=== PATIENT | female | born 1985 | race Caucasian/White ===

== ENCOUNTER 2018-03-11 09:00 | Outpatient (RCR) | payer MEDICAID, SELFPAY | END 2018-03-11 09:01 | disposition home or self-care (01) | LOC: ST 09:00 | PROVIDERS: Family Provider Internal Medicine Adolescent Medicine; Referring Provider Physical Medicine & Rehabilitation; Visit Provider Physical Medicine & Rehabilitation | DX: S06.6X9A Traumatic subarachnoid hemorrhage with loss of consciousness of unspecified duration, initial encounter (principal); S06.9X9A Unspecified intracranial injury with loss of consciousness of unspecified duration, initial encounter; R13.10 Dysphagia, unspecified | CPT/HCPCS: 92507; 96105 ==

== ENCOUNTER 2018-03-19 09:00 | Outpatient (RCR) | payer MEDICAID, SELFPAY | END 2018-03-19 09:01 | disposition home or self-care (01) | LOC: OT 09:00 | PROVIDERS: Family Provider Internal Medicine Adolescent Medicine; Visit Provider Physical Medicine & Rehabilitation | DX: S06.6X9A Traumatic subarachnoid hemorrhage with loss of consciousness of unspecified duration, initial encounter (principal); R13.10 Dysphagia, unspecified | CPT/HCPCS: 97110; 97164; 97166 ==

== ENCOUNTER 2018-04-01 09:30 | Outpatient (RCR) | payer MEDICAID, SELFPAY | END 2018-04-01 09:31 | disposition home or self-care (01) | LOC: PT 09:30 | PROVIDERS: Visit Provider Physical Medicine & Rehabilitation | DX: S06.6X9A Traumatic subarachnoid hemorrhage with loss of consciousness of unspecified duration, initial encounter (principal) | CPT/HCPCS: 97010; 97014; 97033; 97035; 97110; 97112; 97163; 97164; G0283 ==

== ENCOUNTER → 2018-09-14 17:51 | Outpatient (CLI) | payer MEDICAID, SELFPAY ==
[2018-09-14 18:25] LABS: Basophils % 0.4 % (0.1-2.0); Eosinophils # 0.2 K/mm3 (0.0-0.4); Eosinophils % 2.6 % (0.1-12.0); Hematocrit 41.8 % (37.0-47.0); Hemoglobin 13.9 g/dL (12.2-16.2); Lymphocytes # 2.5 K/mm3 (0.7-4.5); Lymphocytes % 31.3 % (10-50); Mean Corpuscular HGB Conc 33.2 g/dL (31.8-35.4); Mean Corpuscular Hemoglobin 30.9 pg (27.0-31.2); Mean Corpuscular Volume 93.1 fl (81-99); Mean Platelet Volume 8.5 fl (7.4-10.4); Monocytes # 0.4 K/mm3 (0.1-1.0); Monocytes % 5.4 % (1.7-9.3); Neutrophils # 4.8 K/mm3 (1.8-7.8); Neutrophils % 60.3 % (37.0-80.0); Platelet Count 210 K/mm3 (142-424); Red Blood Count 4.49 M/mm3 (4.20-5.40); White Blood Count 7.9 K/mm3 (4.8-10.8)
[2018-09-14 18:44] LABS: Alanine Aminotransferase 223 U/L (12-78); Albumin Level 3.9 gm/dL (3.4-5.0); Albumin/Globulin Ratio 1.1 (1.1-1.8); Alkaline Phosphatase 91 U/L (46-116); Anion Gap 13.2 mEq/L (5-15); Aspartate Amino Transferase 88 U/L (15-37); Bilirubin,Total 1.3 mg/dL (0.2-1.0); Blood Urea Nitrogen 13 mg/dL (7-18); Calcium 8.9 mg/dL (8.5-10.1); Carbon Dioxide 27 mmol/L (21.0-32.0); Chloride 105 mmol/L (98-107); Chol/HDL Ratio 2.8 (1-3.5); Cholesterol 113 mg/dL (140-200); Creatinine,Serum 0.97 mg/dL (0.55-1.02); Estimated Glomerular Filt Rate 66 ml/min (>60); Free T4 (Free Thyroxine) 1.31 ng/dl (0.76-1.46); GFR (African American) 80 ML/MIN (>60); Globulin 3.6 gm/dl (1.3-3.2); Glucose 81 mg/dL (74-106); HDL Cholesterol 41 mg/dL (29-89); LDL Cholesterol 57 mg/dL (0-130); Potassium 4.2 mmoL/L (3.5-5.1); Sodium 141 mmol/L (136-145); Thyroid Stimulating Hormone 1.72 uIU/ml (0.358-3.740); Total Protein,Serum 7.5 gm/dL (6.4-8.2); Triglycerides 75 mg/dL (30-200); VLDL Cholesterol 15 mg/dL (0-40)
[2018-09-16 08:57] LABS: Vitamin D 25 Hydroxy 33.3 ng/mL (30.0-100.0)
[2018-09-16 09:19] LABS: Hep A Ab, IgM Negative (Negative); Hepatitis B Core Antibody IgM Negative (Negative); Hepatitis B Surface Antigen Negative (Negative)
[2018-09-16 09:32] LABS: Hepatitis C Antibody >11.0 s/co ratio (0.0-0.9)
== END ==
PROVIDERS: Visit Provider Emergency Medicine
DX: R53.83 Other fatigue (principal); R74.8 Abnormal levels of other serum enzymes
CPT/HCPCS: 80053; 80061; 80074; 82652; 84439; 84443; 85025

== ENCOUNTER → 2018-09-22 17:17 | Outpatient (CLI) | payer MEDICAID, SELFPAY ==
[2018-09-26 23:07] LABS: HCV Genotype Charge YES; Hepatitis C Genotype 3 (.)
== END ==
PROVIDERS: Visit Provider Physician Assistant
DX: R76.8 Other specified abnormal immunological findings in serum (principal)
CPT/HCPCS: 36415; 87522; 87902

== ENCOUNTER → 2018-09-28 14:29 | Outpatient (CLI) | payer MEDICAID, SELFPAY ==
[2018-09-28 14:59] LABS: INR 0.99 (0.9-1.1); Prothrombin Time 10.2 seconds (9.4-11.8)
[2018-09-30 07:45] LABS: Hep A Ab, Total Positive (Negative)
[2018-10-01 07:46] LABS: HIV Screen 4th Generation wRfx Non Reactive (Non Reactive)
== END ==
PROVIDERS: Visit Provider Physician Assistant
DX: B19.20 Unspecified viral hepatitis C without hepatic coma (principal)
CPT/HCPCS: 36415; 85610; 86703; 86708; G0432

== ENCOUNTER → 2018-10-06 13:51 | Outpatient (CLI) | payer MEDICAID, SELFPAY ==
--- NOTE | 2018-10-06 | US_ITS ---
MM Dig mamm BI DX w/CAD, US breast LT complete US breast RT complete INDICATION: Bilateral breast lumps ORDERING PHYSICIAN: Parish Brown PATIENT AGE: 33 years COMPARISON: None TECHNIQUE: Standard images performed along with bilateral breast ultrasound FINDINGS: There is dense fibroglandular tissue which decreases the sensitivity of mammography. No malignant appearing mass or malignant appearing microcalcification is evident. There are scattered areas of asymmetric density present in both breasts felt to be due to areas of asymmetric fibroglandular tissue as opposed to true nodules. There was some asymmetric density in the superior aspect of the right breast demonstrated on one of 2 MLO views felt to be related to fibroglandular tissue. Asymmetric density also noted in the medial aspect of the left breast on the cc view but not produced on the exiting cc view which covers this region also felt to be due to hyperplasia. Similar areas also noted on the right but somewhat less apparent. No sonographic abnormality noted in this region. Right breast ultrasound: No solid or cystic masses are demonstrated. Small nodes present in the axilla. Left breast ultrasound: No solid or cystic lesions demonstrated. Small lymph nodes present in the axilla. IMPRESSION: No convincing evidence of malignancy. Scattered areas of asymmetry. Recommend 6 month follow-up BI-RADS Category: 3 Probably Benign Finding Short Term Follow-up RECOMMENDED FOLLOW-UP: 6M - 6 MONTH FOLLOW-UP Negative mammogram and negative ultrasound does not exclude the possibility of malignancy especially in this patient with dense breast tissue. Any palpable nodule should be managed on a clinical basis. (A letter has been sent to the patient regarding results of the study.)
== END ==
PROVIDERS: PCP Nurse Practitioner Family; Visit Provider Nurse Practitioner Family
DX: N63.10 Unspecified lump in the right breast, unspecified quadrant (principal); N63.20 Unspecified lump in the left breast, unspecified quadrant
CPT/HCPCS: 76641; 77066

== ENCOUNTER → 2018-12-16 16:22 | Outpatient (CLI) | payer MEDICAID, SELFPAY ==
--- NOTE | 2018-12-16 16:29 | XR_ITS ---
XR knee RT 3V HISTORY: ITS.REASON: knee pain ORDERING PHYSICIAN: Parish Brown APRN PATIENT AGE: 33 years COMPARISON: None FINDINGS: No fracture or dislocation. No lytic or blastic change. Normal mineralization. No significant arthritic changes evident. No other significant findings IMPRESSION: Negative Knee
== END ==
PROVIDERS: PCP Emergency Medicine; Visit Provider Nurse Practitioner Family
DX: M25.561 Pain in right knee (principal)
CPT/HCPCS: 73562

== ENCOUNTER → 2019-02-10 12:26 | Outpatient (CLI) | payer MEDICAID, SELFPAY ==
[2019-02-10 12:46] LABS: Basophils % 0.4 % (0.1-2.0); Eosinophils # 0.2 K/mm3 (0.0-0.4); Eosinophils % 2.9 % (0.1-12.0); Hematocrit 47.9 % (37.0-47.0); Hemoglobin 15.2 g/dL (12.2-16.2); Mean Corpuscular HGB Conc 31.8 g/dL (31.8-35.4); Mean Corpuscular Hemoglobin 29.8 pg (27.0-31.2); Mean Corpuscular Volume 93.9 fl (81-99); Monocytes # 0.4 K/mm3 (0.1-1.0); Monocytes % 4.7 % (1.7-9.3); Platelet Count 217 K/mm3 (142-424); Red Cell Distribution Width 13.3 % (11.5-17.5); White Blood Count 7.6 K/mm3 (4.8-10.8)
[2019-02-10 12:55] LABS: Urine Pregnancy, HCG Qual. Negative (Negative)
[2019-02-10 13:05] LABS: INR 1.02 (0.9-1.1); Prothrombin Time 10.6 seconds (9.4-11.8)
[2019-02-10 14:23] LABS: Alanine Aminotransferase 219 U/L (12-78); Albumin Level 3.7 gm/dL (3.4-5.0); Albumin/Globulin Ratio 1.1 (1.1-1.8); Alkaline Phosphatase 89 U/L (46-116); Anion Gap 14.6 mEq/L (5-15); Aspartate Amino Transferase 118 U/L (15-37); Bilirubin,Total 1.6 mg/dL (0.2-1.0); Blood Urea Nitrogen 14 mg/dL (7-18); Carbon Dioxide 25 mmol/L (21.0-32.0); Chloride 105 mmol/L (98-107); Creatinine,Serum 0.95 mg/dL (0.55-1.02); Estimated Glomerular Filt Rate 67 ml/min (>60); GFR (African American) 81 ML/MIN (>60); Globulin 3.4 gm/dl (1.3-3.2); Glucose 89 mg/dL (74-106); Potassium 4.6 mmoL/L (3.5-5.1); Sodium 140 mmol/L (136-145); Total Protein,Serum 7.1 gm/dL (6.4-8.2)
[2019-02-14 13:09] LABS: HCV Genotype Charge YES; Hepatitis C Genotype 3 (.)
== END ==
PROVIDERS: Visit Provider Nurse Practitioner Family
DX: B19.20 Unspecified viral hepatitis C without hepatic coma (principal)
CPT/HCPCS: 36415; 80053; 81025; 85025; 85610; 87522; 87902

== ENCOUNTER → 2019-03-15 13:10 | Outpatient (CLI) | payer MEDICAID, SELFPAY ==
[2019-03-15 14:35] LABS: HCG Qualitative, Serum Negative (Negative)
[2019-03-19 13:11] LABS: Hepatitis C Genotype 3 (.)
== END ==
PROVIDERS: Visit Provider Nurse Practitioner Family
DX: B19.20 Unspecified viral hepatitis C without hepatic coma (principal)
CPT/HCPCS: 36415; 84703; 87522

== ENCOUNTER → 2019-04-14 15:30 | Outpatient (CLI) | payer MEDICAID, SELFPAY ==
[2019-04-14 15:43] LABS: Basophils % 0.5 % (0.1-2.0); Eosinophils # 0.1 K/mm3 (0.0-0.4); Eosinophils % 1.6 % (0.1-12.0); Hematocrit 43.1 % (37.0-47.0); Hemoglobin 13.9 g/dL (12.2-16.2); Lymphocytes # 1.9 K/mm3 (0.7-4.5); Lymphocytes % 30.2 % (10-50); Mean Corpuscular HGB Conc 32.1 g/dL (31.8-35.4); Mean Corpuscular Hemoglobin 29.8 pg (27.0-31.2); Mean Corpuscular Volume 92.7 fl (81-99); Mean Platelet Volume 7.6 fl (7.4-10.4); Monocytes # 0.3 K/mm3 (0.1-1.0); Monocytes % 4.9 % (1.7-9.3); Neutrophils % 62.7 % (37.0-80.0); Platelet Count 161 K/mm3 (142-424); Red Blood Count 4.65 M/mm3 (4.20-5.40); White Blood Count 6.4 K/mm3 (4.8-10.8)
[2019-04-14 15:56] LABS: INR 1.03 (0.9-1.1); Prothrombin Time 10.7 seconds (9.4-11.8)
[2019-04-14 17:26] LABS: Alanine Aminotransferase 223 U/L (12-78); Albumin Level 3.8 gm/dL (3.4-5.0); Albumin/Globulin Ratio 1.2 (1.1-1.8); Alkaline Phosphatase 97 U/L (46-116); Anion Gap 10.4 mEq/L (5-15); Aspartate Amino Transferase 123 U/L (15-37); Bilirubin,Total 1.1 mg/dL (0.2-1.0); Blood Urea Nitrogen 10 mg/dL (7-18); Carbon Dioxide 28 mmol/L (21.0-32.0); Chloride 106 mmol/L (98-107); Creatinine,Serum 0.78 mg/dL (0.55-1.02); Estimated Glomerular Filt Rate 84 ml/min (>60); GFR (African American) 102 ML/MIN (>60); Globulin 3.1 gm/dl (1.3-3.2); Glucose 66 mg/dL (74-106); Potassium 3.4 mmoL/L (3.5-5.1); Sodium 141 mmol/L (136-145); Total Protein,Serum 6.9 gm/dL (6.4-8.2)
[2019-04-15 12:33] LABS: HCG,Quantitative 0 mIU/mL
[2019-04-19 02:11] LABS: HCV Genotype Charge YES; Hepatitis C Genotype 3 (.)
== END ==
PROVIDERS: Visit Provider Nurse Practitioner Family
DX: B19.20 Unspecified viral hepatitis C without hepatic coma (principal)
CPT/HCPCS: 36415; 80053; 84702; 85025; 85610; 87522; 87902

== ENCOUNTER → 2019-04-28 18:09 | Outpatient (CLI) | payer MEDICAID, SELFPAY ==
[2019-04-28 19:03] LABS: Basophils % 0.5 % (0.1-2.0); Eosinophils # 0.2 K/mm3 (0.0-0.4); Eosinophils % 2.6 % (0.1-12.0); Hematocrit 43.7 % (37.0-47.0); Hemoglobin 14.4 g/dL (12.2-16.2); Lymphocytes # 2.9 K/mm3 (0.7-4.5); Lymphocytes % 38.1 % (10-50); Mean Corpuscular Hemoglobin 30.2 pg (27.0-31.2); Mean Corpuscular Volume 91.6 fl (81-99); Mean Platelet Volume 8.5 fl (7.4-10.4); Monocytes # 0.4 K/mm3 (0.1-1.0); Monocytes % 4.9 % (1.7-9.3); Neutrophils # 4.1 K/mm3 (1.8-7.8); Neutrophils % 53.9 % (37.0-80.0); Platelet Count 227 K/mm3 (142-424); Red Blood Count 4.77 M/mm3 (4.20-5.40); Red Cell Distribution Width 12.9 % (11.5-17.5); White Blood Count 7.6 K/mm3 (4.8-10.8)
[2019-04-28 19:16] LABS: Alanine Aminotransferase 37 U/L (12-78); Albumin Level 3.8 gm/dL (3.4-5.0); Albumin/Globulin Ratio 1.1 (1.1-1.8); Alkaline Phosphatase 83 U/L (46-116); Anion Gap 15.9 mEq/L (5-15); Aspartate Amino Transferase 24 U/L (15-37); Bilirubin,Total 1.4 mg/dL (0.2-1.0); Blood Urea Nitrogen 10 mg/dL (7-18); Carbon Dioxide 25 mmol/L (21.0-32.0); Chloride 106 mmol/L (98-107); Creatinine,Serum 0.98 mg/dL (0.55-1.02); Estimated Glomerular Filt Rate 65 ml/min (>60); GFR (African American) 78 ML/MIN (>60); Globulin 3.4 gm/dl (1.3-3.2); Glucose 128 mg/dL (74-106); Potassium 3.9 mmoL/L (3.5-5.1); Sodium 143 mmol/L (136-145); Total Protein,Serum 7.2 gm/dL (6.4-8.2)
== END ==
PROVIDERS: Visit Provider Nurse Practitioner Family
DX: B19.20 Unspecified viral hepatitis C without hepatic coma (principal)
CPT/HCPCS: 80053; 85025; 87522

== ENCOUNTER 2019-05-03 14:30 | Outpatient (RCR) | payer MEDICAID, SELFPAY ==
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
== END 2019-05-03 14:35 | disposition home or self-care (01) ==
LOC: PT 14:30
PROVIDERS: Visit Provider Nurse Practitioner Family
DX: M54.9 Dorsalgia, unspecified (principal); M54.5 Low back pain; M25.561 Pain in right knee
CPT/HCPCS: 97110; 97163

== ENCOUNTER → 2019-05-13 17:21 | Outpatient (CLI) | payer MEDICAID, SELFPAY ==
[2019-05-13 17:57] LABS: INR 1.02 (0.9-1.1); Prothrombin Time 10.6 seconds (9.4-11.8)
[2019-05-13 18:01] LABS: Basophils # 0.1 K/mm3 (0-0.2); Basophils % 0.5 % (0.1-2.0); Eosinophils # 0.2 K/mm3 (0.0-0.4); Eosinophils % 2.4 % (0.1-12.0); Hematocrit 45.9 % (37.0-47.0); Hemoglobin 14.3 g/dL (12.2-16.2); Lymphocytes # 2.4 K/mm3 (0.7-4.5); Lymphocytes % 26.3 % (10-50); Mean Corpuscular HGB Conc 31.2 g/dL (31.8-35.4); Mean Corpuscular Hemoglobin 29.1 pg (27.0-31.2); Mean Corpuscular Volume 93.3 fl (81-99); Mean Platelet Volume 8.3 fl (7.4-10.4); Monocytes # 0.5 K/mm3 (0.1-1.0); Monocytes % 5.4 % (1.7-9.3); Neutrophils % 65.4 % (37.0-80.0); Platelet Count 211 K/mm3 (142-424); Red Blood Count 4.91 M/mm3 (4.20-5.40); Red Cell Distribution Width 13.7 % (11.5-17.5); White Blood Count 9.2 K/mm3 (4.8-10.8)
[2019-05-13 18:49] LABS: Urine Pregnancy, HCG Qual. Negative (Negative)
[2019-05-13 20:00] LABS: Alanine Aminotransferase 24 U/L (12-78); Albumin Level 3.6 gm/dL (3.4-5.0); Albumin/Globulin Ratio 1.1 (1.1-1.8); Alkaline Phosphatase 82 U/L (46-116); Aspartate Amino Transferase 17 U/L (15-37); Bilirubin,Total 1.4 mg/dL (0.2-1.0); Blood Urea Nitrogen 10 mg/dL (7-18); Carbon Dioxide 27 mmol/L (21.0-32.0); Creatinine,Serum 0.77 mg/dL (0.55-1.02); Estimated Glomerular Filt Rate 85 ml/min (>60); GFR (African American) 103 ML/MIN (>60); Globulin 3.2 gm/dl (1.3-3.2); Glucose 114 mg/dL (74-106); Potassium 3.7 mmoL/L (3.5-5.1); Sodium 139 mmol/L (136-145); Total Protein,Serum 6.8 gm/dL (6.4-8.2)
[2019-05-13 20:25] LABS: Anion Gap 11.7 mEq/L (5-15); Chloride 104 mmol/L (98-107)
== END ==
PROVIDERS: Visit Provider Nurse Practitioner Family
DX: B19.20 Unspecified viral hepatitis C without hepatic coma (principal)
CPT/HCPCS: 36415; 80053; 81025; 85025; 85610; 87522; 87902

== ENCOUNTER → 2019-06-09 11:41 | Outpatient (CLI) | payer MEDICAID, SELFPAY ==
[2019-06-09 11:56] LABS: Basophils % 0.7 % (0.1-2.0); Eosinophils # 0.1 K/mm3 (0.0-0.4); Eosinophils % 2.1 % (0.1-12.0); Hematocrit 42.4 % (37.0-47.0); Hemoglobin 13.5 g/dL (12.2-16.2); Lymphocytes # 2.4 K/mm3 (0.7-4.5); Lymphocytes % 38.8 % (10-50); Mean Corpuscular HGB Conc 31.9 g/dL (31.8-35.4); Mean Corpuscular Hemoglobin 30.1 pg (27.0-31.2); Mean Corpuscular Volume 94.4 fl (81-99); Mean Platelet Volume 8.6 fl (7.4-10.4); Monocytes # 0.4 K/mm3 (0.1-1.0); Monocytes % 6.4 % (1.7-9.3); Neutrophils # 3.2 K/mm3 (1.8-7.8); Platelet Count 194 K/mm3 (142-424); Red Blood Count 4.49 M/mm3 (4.20-5.40); Red Cell Distribution Width 13.2 % (11.5-17.5); White Blood Count 6.1 K/mm3 (4.8-10.8)
[2019-06-09 12:21] LABS: Urine Pregnancy, HCG Qual. Negative (Negative)
[2019-06-09 15:33] LABS: INR 1.03 (0.9-1.1); Prothrombin Time 10.7 seconds (9.4-11.8)
[2019-06-09 18:51] LABS: Alanine Aminotransferase 33 U/L (12-78); Albumin Level 3.5 gm/dL (3.4-5.0); Albumin/Globulin Ratio 1.1 (1.1-1.8); Alkaline Phosphatase 97 U/L (46-116); Anion Gap 12.7 mEq/L (5-15); Aspartate Amino Transferase 32 U/L (15-37); Bilirubin,Total 1.2 mg/dL (0.2-1.0); Blood Urea Nitrogen 11 mg/dL (7-18); Calcium 9.1 mg/dL (8.5-10.1); Carbon Dioxide 26 mmol/L (21.0-32.0); Chloride 106 mmol/L (98-107); Creatinine,Serum 0.85 mg/dL (0.55-1.02); Estimated Glomerular Filt Rate 76 ml/min (>60); GFR (African American) 92 ML/MIN (>60); Globulin 3.1 gm/dl (1.3-3.2); Glucose 88 mg/dL (74-106); Potassium 3.7 mmoL/L (3.5-5.1); Sodium 141 mmol/L (136-145); Total Protein,Serum 6.6 gm/dL (6.4-8.2)
== END ==
PROVIDERS: Visit Provider Nurse Practitioner Family
DX: B19.20 Unspecified viral hepatitis C without hepatic coma (principal)
CPT/HCPCS: 36415; 80053; 81025; 85025; 85610; 87522

== ENCOUNTER → 2019-07-09 17:12 | Outpatient (CLI) | payer MEDICAID, SELFPAY ==
[2019-07-09 17:58] LABS: Urine Pregnancy, HCG Qual. Negative (Negative)
[2019-07-09 18:08] LABS: Basophils % 0.6 % (0.1-2.0); Eosinophils # 0.2 K/mm3 (0.0-0.4); Eosinophils % 2.5 % (0.1-12.0); Hematocrit 41.1 % (37.0-47.0); Hemoglobin 13.9 g/dL (12.2-16.2); Lymphocytes # 2.6 K/mm3 (0.7-4.5); Lymphocytes % 36.4 % (10-50); Mean Corpuscular HGB Conc 33.7 g/dL (31.8-35.4); Mean Corpuscular Hemoglobin 30.8 pg (27.0-31.2); Mean Corpuscular Volume 91.4 fl (81-99); Mean Platelet Volume 9.6 fl (7.4-10.4); Monocytes # 0.4 K/mm3 (0.1-1.0); Monocytes % 6.1 % (1.7-9.3); Neutrophils # 3.8 K/mm3 (1.8-7.8); Neutrophils % 54.4 % (37.0-80.0); Platelet Count 213 K/mm3 (142-424); Red Cell Distribution Width 13.1 % (11.5-17.5)
[2019-07-09 18:09] LABS: Alanine Aminotransferase 23 U/L (12-78); Albumin Level 3.7 gm/dL (3.4-5.0); Albumin/Globulin Ratio 1.1 (1.1-1.8); Alkaline Phosphatase 79 U/L (46-116); Anion Gap 13.9 mEq/L (5-15); Aspartate Amino Transferase 23 U/L (15-37); Bilirubin,Total 1.7 mg/dL (0.2-1.0); Blood Urea Nitrogen 10 mg/dL (7-18); Calcium 8.9 mg/dL (8.5-10.1); Carbon Dioxide 23 mmol/L (21.0-32.0); Chloride 105 mmol/L (98-107); Creatinine,Serum 0.79 mg/dL (0.55-1.02); Estimated Glomerular Filt Rate 83 ml/min (>60); GFR (African American) 100 ML/MIN (>60); Globulin 3.5 gm/dl (1.3-3.2); Glucose 90 mg/dL (74-106); Potassium 3.9 mmoL/L (3.5-5.1); Sodium 138 mmol/L (136-145); Total Protein,Serum 7.2 gm/dL (6.4-8.2)
== END ==
PROVIDERS: Visit Provider Nurse Practitioner Family
DX: B19.20 Unspecified viral hepatitis C without hepatic coma (principal)
CPT/HCPCS: 80053; 81025; 85025; 87522; 87902

== ENCOUNTER → 2019-09-01 14:41 | Outpatient (CLI) | payer MEDICAID, SELFPAY ==
[2019-09-01 15:05] LABS: Urine Pregnancy, HCG Qual. Negative (Negative)
[2019-09-01 15:10] LABS: Basophils # 0.1 K/mm3 (0-0.2); Basophils % 0.6 % (0.1-2.0); Eosinophils # 0.2 K/mm3 (0.0-0.4); Eosinophils % 1.7 % (0.1-12.0); Hematocrit 41.9 % (37.0-47.0); Hemoglobin 13.3 g/dL (12.2-16.2); Lymphocytes # 2.5 K/mm3 (0.7-4.5); Lymphocytes % 28.4 % (10-50); Mean Corpuscular HGB Conc 31.7 g/dL (31.8-35.4); Mean Corpuscular Hemoglobin 28.7 pg (27.0-31.2); Mean Corpuscular Volume 90.6 fl (81-99); Mean Platelet Volume 8.3 fl (7.4-10.4); Monocytes # 0.4 K/mm3 (0.1-1.0); Monocytes % 4.7 % (1.7-9.3); Neutrophils # 5.7 K/mm3 (1.8-7.8); Neutrophils % 64.6 % (37.0-80.0); Platelet Count 233 K/mm3 (142-424); Red Blood Count 4.63 M/mm3 (4.20-5.40); Red Cell Distribution Width 13.2 % (11.5-17.5); White Blood Count 8.9 K/mm3 (4.8-10.8)
[2019-09-01 15:21] LABS: INR 1.01 (0.9-1.1); Prothrombin Time 10.5 seconds (9.4-11.8)
[2019-09-01 15:53] LABS: Alanine Aminotransferase 23 U/L (12-78); Albumin Level 3.5 gm/dL (3.4-5.0); Alkaline Phosphatase 93 U/L (46-116); Aspartate Amino Transferase 21 U/L (15-37); Bilirubin,Total 0.7 mg/dL (0.2-1.0); Blood Urea Nitrogen 16 mg/dL (7-18); Calcium 8.7 mg/dL (8.5-10.1); Carbon Dioxide 27 mmol/L (21.0-32.0); Chloride 103 mmol/L (98-107); Creatinine,Serum 0.86 mg/dL (0.55-1.02); Estimated Glomerular Filt Rate 75 ml/min (>60); GFR (African American) 91 ML/MIN (>60); Globulin 3.5 gm/dl (1.3-3.2); Glucose 96 mg/dL (74-106); Sodium 137 mmol/L (136-145)
== END ==
PROVIDERS: Visit Provider Nurse Practitioner Family
DX: B19.20 Unspecified viral hepatitis C without hepatic coma (principal)
CPT/HCPCS: 36415; 80053; 81025; 85025; 85610; 87522

== ENCOUNTER 2020-07-03 08:53 | Outpatient (RCR) | payer MEDICAID, SELFPAY ==
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
== END 2020-07-03 09:45 | disposition home or self-care (01) ==
LOC: PT 08:53
PROVIDERS: PCP Emergency Medicine; Visit Provider Nurse Practitioner Family
DX: M25.512 Pain in left shoulder (principal); M54.9 Dorsalgia, unspecified; M25.561 Pain in right knee; G89.29 Other chronic pain
CPT/HCPCS: 97163

== ENCOUNTER → 2020-08-09 09:35 | Outpatient (CLI) | payer MEDICAID, SELFPAY ==
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
== END ==
PROVIDERS: PCP Nurse Practitioner Family; Visit Provider Specialist
DX: R41.3 Other amnesia (principal); G43.719 Chronic migraine without aura, intractable, without status migrainosus; G93.49 Other encephalopathy; S06.9X9S Unspecified intracranial injury with loss of consciousness of unspecified duration, sequela; Z87.898 Personal history of other specified conditions
CPT/HCPCS: 70551

== ENCOUNTER → 2020-08-22 12:08 | Outpatient (CLI) | payer MEDICAID, SELFPAY ==
[2020-08-22 14:16] LABS: Vitamin B12 287 pg/mL (239-931)
[2020-08-22 14:22] LABS: Folate 6.78 ng/mL
== END ==
PROVIDERS: Visit Provider Specialist
DX: G43.719 Chronic migraine without aura, intractable, without status migrainosus (principal); G93.49 Other encephalopathy; R41.3 Other amnesia; S06.9X9S Unspecified intracranial injury with loss of consciousness of unspecified duration, sequela; Z87.898 Personal history of other specified conditions; Z79.899 Other long term (current) drug therapy
CPT/HCPCS: 36415; 82607; 82746; 84443

== ENCOUNTER → 2020-08-24 18:38 | Outpatient (CLI) | payer MEDICAID, SELFPAY ==
[2020-08-24 19:12] LABS: Basophils % 0.4 % (0.1-2.0); Eosinophils # 0.2 K/mm3 (0.0-0.4); Eosinophils % 2.2 % (0.1-12.0); Hematocrit 40.8 % (37.0-47.0); Hemoglobin 13.5 g/dL (12.2-16.2); Lymphocytes # 2.4 K/mm3 (0.7-4.5); Lymphocytes % 32.5 % (10-50); Mean Corpuscular HGB Conc 33.2 g/dL (31.8-35.4); Mean Corpuscular Hemoglobin 30.6 pg (27.0-31.2); Mean Corpuscular Volume 92.4 fl (81-99); Mean Platelet Volume 9.4 fl (7.4-10.4); Monocytes # 0.4 K/mm3 (0.1-1.0); Monocytes % 5.8 % (1.7-9.3); Neutrophils # 4.4 K/mm3 (1.8-7.8); Neutrophils % 59.1 % (37.0-80.0); Platelet Count 192 K/mm3 (142-424); Red Blood Count 4.42 M/mm3 (4.20-5.40); Red Cell Distribution Width 14.6 % (11.5-17.5); White Blood Count 7.4 K/mm3 (4.8-10.8)
[2020-08-24 19:21] LABS: Alanine Aminotransferase 28 U/L (12-78); Albumin Level 4.1 g/dl (3.5-5.0); Albumin/Globulin Ratio 1.4 (1.1-1.8); Alkaline Phosphatase 71 U/L (38-126); Anion Gap 13.6 mEq/L (5-15); Aspartate Amino Transferase 31 U/L (14-36); Blood Urea Nitrogen 9 mg/dl (7-17); Calcium 9.1 mg/dl (8.4-10.2); Carbon Dioxide 24 mmol/L (22.0-30.0); Chloride 106 mmol/L (98-107); Estimated Glomerular Filt Rate 95 ml/min (>60); GFR (African American) 115 ML/MIN (>60); Glucose 105 mg/dl (74-100); Potassium 4.6 mmoL/L (3.5-5.1); Sodium 139 mmol/L (136-145); Total Protein,Serum 7.1 g/dl (6.3-8.2)
[2020-08-24 19:37] LABS: T4 (Thyroxine) 9.4 ug/dl (5.53-11.0)
[2020-08-24 19:51] LABS: Thyroid Stimulating Hormone 2.15 uIU/mL (0.465-4.68)
== END ==
PROVIDERS: PCP Nurse Practitioner Family; Visit Provider Nurse Practitioner Family
DX: B19.20 Unspecified viral hepatitis C without hepatic coma (principal); R94.5 Abnormal results of liver function studies; R53.83 Other fatigue; R32 Unspecified urinary incontinence
CPT/HCPCS: 80053; 84436; 84443; 85025; 87086; 87522; 87902

== ENCOUNTER 2020-08-26 14:01 | Emergency (ER) | payer MEDICAID, SELFPAY ==
[2020-08-26 14:20] VITALS: BP 111/65; PULSE 64; RESP 18; TEMP 36.8; O2SAT 98; BMI 26.1
--- NOTE | 2020-08-26 14:38 | HMH.EDUTC ---
[facility] [place] Disposition Clinical Impression: Nausea & vomiting Qualifiers: Vomiting type: unspecified Vomiting Intractability: unspecified Qualified Code(s): R11.2 - Nausea with vomiting, unspecified Disposition: Home, Self-Care Condition on Discharge: Good Instructions: Nausea and Vomiting-Adult, DI for Nausea -- Adult, DI for COVID-19 (Suspected or Confirmed ), Preventing the Spread of Coronavirus Discharge Instructions, Coronavirus Disease 2019 Additional Instructions: ? Avoid fruit juices, as these do not replace minerals and can actually increase diarrhea. ? Children and adults can use sports drinks to replenish electrolytes. Younger children and infants should use products formulated for children, like oral rehydration solutions. ? Eat food in small amounts and let your stomach recover. ? Get lots of rest. You may feel tired or weak. ? No greasy or fried foods for the next 24-48 hours BRAT diet Bananas Rice Apples and [place] ? Make sure to drink plenty of liquids ? Return if needed ? Straight to ER if any life threatening symptoms ? Zofran as prescribed You were tested for today for COVID19 your test result should be back in the next 24-48 hours, you may call to the [facility] to see if your test results are back in the next 48 hours [phone] [facility] hours are 9am-9pm You was given a handout with instructions for Self Quarantine and Self isolation for while you wait on test results and what to do if they are positive If you are positive the Health Dept will be contacting you also ? Follow up with family doctor in the next 48-72 hours if no improvement or any worsening of symptoms Prescriptions: Ondansetron [Zofran 4mg ODT] 4 mg PO TIDP PRN #12 tab PRN Reason: Vomiting Transmission Status: Pending to [facility] Referrals: Parish Brown APRN [Primary Care Provider] - As needed Time of Disposition: 14:50 Medical Decision Making - Joon Inquiry Pt receiving controlled substance: No [place] was queried for this patient: No Vital Signs: 08/26/20 14:20 Temperature 98.2 F Temperature Source Oral Pulse Rate [Right Brachial] 64 Respiratory Rate 18 Blood Pressure [Right Arm] 111/65 Blood Pressure Mean [Right Arm] 80 Blood Pressure Source [Right Arm] Automatic Cuff Blood Pressure Position [Right Arm] Sitting 02 Sat by Pulse Oximetry 98 Oxygen Delivery Method Room Air Orders (Tests/Meds): ORDERS Category Date Time Status Covid-19 Nasal PCR ([facility]) Routine Lab 08/26/20 14:26 Ordered Medical Decision Narrative: Denies chance of [facility] [place] [facility] HPI - General Stated complaint: Cough, headache, nausea Time Seen by Provider: 08/26/20 14:38 Mode of Arrival: Ambulatory Source of Information: Patient Limitations: No Limitations Description of Symptoms (Recalled from Triage Doc. by RN): PATIENT C/O NAUSEA AND VOMITING SINCE THIS MORNING HEENT Symptoms (Recalled from RN notes): No Resp Symptoms (Recalled from RN notes): No Skin Symptoms (Recalled from RN notes): No MS Symptoms (Recalled from RN notes): No Functional Status (Recalled from RN notes): WNL - History of Present Illness Provider Complaint: Patient states that she hasnt felt well for a couple of days States that this morning she woke up and was having some nausea States that she was recently around her cousin that was tested for COVID but not got any results back yet States that she wanted to come in and get tested - Related Data Previous Rx's Medication Instructions Recorded diclofenac sodium 1 % topical gel 2 g TOPICAL QID #100 g 06/23/20 galcanezumab-gnlm 120 mg/mL 120 mg SQ QMONTH #1 ml 07/11/20 subcutaneous pen injector sumatriptan succinate 100 mg tablet See Rx Instructions PO .COMPLEX 07/11/20 #10 tab risperidone 0.5 mg tablet 0.5 mg PO BID #60 tab 08/21/20 Ondansetron [Zofran 4mg ODT] 4 mg PO TIDP PRN #12 tab 08/26/20 Allergies Allergy/AdvReac Type Severity Reaction Status Date / Time No Known Allergies Allergy Verified
[2020-08-26 14:54] VITALS: BP 111/65; PULSE 64; RESP 18; TEMP 36.8; O2SAT 98
--- NOTE | 2020-08-26 20:34 | PC.NURSE ---
ATTEMPTED TO CALL PT ABOUT COVID RESULTS. RECEIVED NO ANSWER. WILL TRY AGAIN LATER
--- NOTE | 2020-08-26 20:39 | PC.NURSE ---
PT NOTIFIED OF POSITIVE COVID RESULT
--- NOTE | 2020-08-26 20:43 | PC.NURSE ---
PATIENT NOTIFIED OF POSITIVE COVID TEST AT THIS TIME
== END 2020-08-26 14:55 | disposition home or self-care (01) ==
PROVIDERS: Emergency Provider Nurse Practitioner; PCP Nurse Practitioner Family
DX: U07.1 COVID-19 (principal); F41.8 Other specified anxiety disorders; I10 Essential (primary) hypertension; F17.210 Nicotine dependence, cigarettes, uncomplicated
CPT/HCPCS: 99202; G0463; U0003

== ENCOUNTER → 2020-09-21 15:57 | Outpatient (CLI) | payer MEDICAID, SELFPAY ==
[2020-09-23 18:55] LABS: Homocyst(e)ine 8.4 umol/L (0.0-14.5)
[2020-09-29 15:32] LABS: Methylmalonic Acid 108 nmol/L (0-378)
== END ==
PROVIDERS: Visit Provider Specialist
DX: E53.8 Deficiency of other specified B group vitamins (principal)
CPT/HCPCS: 36415; 82131; 83090

== ENCOUNTER 2020-09-26 01:02 | Emergency (ER) | payer MEDICAID, SELFPAY ==
[2020-09-26 01:05] VITALS: BP 129/78; PULSE 99; RESP 16; TEMP 36.6; O2SAT 100; BMI 26.6
--- NOTE | 2020-09-26 01:24 | PC.NURSE ---
Pt ambulatory to [facility] a this time independently
--- NOTE | 2020-09-26 01:27 | HMH.EDDIZZ ---
ED Disposition Clinical Impression: Dizziness, Abnormal drug screen Disposition: Home, Self-Care Condition on Discharge: Good Instructions: Vertigo Additional Instructions: call pcp for follow up Referrals: Parish Brown APRN [Primary Care Provider] - - Critical Care Critical Care Time: No Attestation: On 09/26/20, the high probability of a clinically significant, sudden or life threatening deterioration of the following system(s) required my full and direct attention, intervention and personal management. The time I documented below is in addition to time spent performing reported procedures but includes the following listed in this critical care notation. Medical Decision Making - Medical Records Medical records reviewed: Yes: I reviewed the patient's medical records. - Joon Inquiry Pt receiving controlled substance: No Vital Signs: 09/26/20 01:05 09/26/20 02:05 09/26/20 02:30 Temperature 97.8 F Temperature Source Oral Pulse Rate [Left Radial] 99 H 81 81 Respiratory Rate 16 16 Blood Pressure [Right Arm] 129/78 116/59 L 114/69 Blood Pressure Mean [Right Arm] 95 78 84 Blood Pressure Source [Right Arm] Automatic Cuff Automatic Cuff Automatic Cuff Blood Pressure Position [Right Arm] Supine Supine Supine 02 Sat by Pulse Oximetry 100 99 100 Oxygen Delivery Method Room Air Room Air Room Air - Lab Data Lab results reviewed: Yes: I reviewed the patient's lab results. Lab Results 09/26/20 01:26: WBC 7.8, RBC 4.92, Hgb 14.8, Hct 44.9, MCV 91.2, MCH 30.1, MCHC 33.0, RDW 13.4, Plt Count 181, MPV 8.6, Neut % (Auto) 52.2, Lymph % (Auto) 39.5, [place] % (Auto) 5.6, Eos % (Auto) 2.1, Baso % (Auto) 0.6, Neut # (Auto) 4.0, Lymph # (Auto) 3.1, [place] # (Auto) 0.4, Eos # (Auto) 0.2, Baso # (Auto) 0.1, ESR 3 09/26/20 01:26: Sodium 140, Potassium 3.5, Chloride 107, Carbon Dioxide 25, Anion Gap 11.5, BUN 13, Creatinine 0.80, Estimated Creat Clear 115, Estimated GFR 81, Est GFR ( Amer) 98, Glucose 112 H, Calcium 9.9, Total Bilirubin 1.4 H, Direct Bilirubin 0.1, Conjugated Bilirubin 0.0, Indirect Bilirubin 1.3 H, Unconjugated Bilirubin 1.3 H, AST 27, ALT 18, Alkaline Phosphatase 70, Troponin I < 0.01, C-Reactive Protein 1.2, Total Protein 8.4 H, Albumin 4.9 09/26/20 01:30: Urine Color Yellow, Urine Appearance Clear, Urine pH 6.0, Ur Specific [place] 1.010, Urine Protein Negative, Urine Glucose (UA) Negative, Urine Ketones Negative, Urine Blood Negative, Urine Nitrate Negative, Urine Bilirubin Negative, Urine Urobilinogen 0.2, Ur Leukocyte Esterase Negative, Urine RBC None, Urine WBC 3-5, Ur Squamous Epith Cells 10-20, Urine Bacteria Trace 09/26/20 01:30: Urine Opiates Screen Negative, Urine Methadone Screen Negative, Ur Barbituates Screen Negative, Ur Phencyclidine Scrn Negative, U Benzodiazepines Scrn Negative, Urine Cocaine Screen Negative, U Marijuana (THC) Screen Negative Result diagrams: 09/26/20 01:26 09/26/20 01:26 Orders (Tests/Meds): ED MEDICATIONS Generic Name Dose Route Start Last Admin Trade Name Freq PRN Reason Stop Dose Admin Sodium Chloride 1,000 mls @ 999 mls/hr 09/26/20 01:30 09/26/20 01:37 Sod Chlor 0.9% 1000ml Bag IV 09/26/20 02:30 999 mls/hr .Q1H1M RYAN Administration ORDERS Category Date Time Status Drug Screen,Urine Stat Lab 09/26/20 01:30 Results Troponin I Q3H Lab 09/26/20 04:30 Ordered Troponin I Q3H Lab 09/26/20 07:30 Ordered - ECG Data Tracing #1 Normal Sinus Rhythm: Yes Ischemic changes: non-specific ST-T wave changes Dizzy HPI - General Chief Complaint: Dizziness Stated Complaint: heart racing, anxiety Time Seen by Provider: 09/26/20 01:28 Mode of Arrival: Ambulatory Source of Information: Patient, Significant Other, Medical Record Limitations: No Limitations Description of Symptoms (Recalled from ER Triage Doc. by RN): Pt reports dizzy spells the past 2 days accomplanied by racing heart and a squeezing feeling in her chest. - History of Pr
[2020-09-26 01:34] LABS: Microscopic, Urine URINE MICROSCOPIC (MICROSCOPIC)
--- NOTE | 2020-09-26 01:35 | ECG_ITS ---
APPROVED REPORT Exam: Resting ECG HR:82 bpm ECG Measurements Heart Rate 82 AXES WI 140 P 70 QRSd 96 QRS 72 QT 416 T 42 QTc 486 Conclusion Normal sinus rhythm RSR' or QR pattern in V1 suggests right ventricular conduction delay Prolonged QT Abnormal ECG Electronically signed by : Kana Arteaga, 09/26/2020 07:09:51
[2020-09-26 01:42] LABS: C-Reactive Protein 1.2 mg/L (0-4)
[2020-09-26 01:43] LABS: Basophils # 0.1 K/mm3 (0-0.2); Basophils % 0.6 % (0.1-2.0); Eosinophils # 0.2 K/mm3 (0.0-0.4); Eosinophils % 2.1 % (0.1-12.0); Hematocrit 44.9 % (37.0-47.0); Hemoglobin 14.8 g/dL (12.2-16.2); Lymphocytes # 3.1 K/mm3 (0.7-4.5); Lymphocytes % 39.5 % (10-50); Mean Corpuscular Hemoglobin 30.1 pg (27.0-31.2); Mean Corpuscular Volume 91.2 fl (81-99); Mean Platelet Volume 8.6 fl (7.4-10.4); Monocytes # 0.4 K/mm3 (0.1-1.0); Monocytes % 5.6 % (1.7-9.3); Neutrophils % 52.2 % (37.0-80.0); Platelet Count 181 K/mm3 (142-424); Red Blood Count 4.92 M/mm3 (4.20-5.40); Red Cell Distribution Width 13.4 % (11.5-17.5); White Blood Count 7.8 K/mm3 (4.8-10.8)
[2020-09-26 01:44] LABS: Alanine Aminotransferase 18 U/L (12-78); Albumin Level 4.9 g/dl (3.5-5.0); Alkaline Phosphatase 70 U/L (38-126); Anion Gap 11.5 mEq/L (5-15); Aspartate Amino Transferase 27 U/L (14-36); Bilirubin,Direct 0.1 mg/dl (0.0-0.4); Bilirubin,Indirect 1.3 mg/dL (0.0-0.9); Bilirubin,Total 1.4 mg/dl (0.2-1.3); Bilirubin,Unconjugated 1.3 mg/dL (0.0-1.1); Blood Urea Nitrogen 13 mg/dl (7-17); Calcium 9.9 mg/dl (8.4-10.2); Carbon Dioxide 25 mmol/L (22.0-30.0); Chloride 107 mmol/L (98-107); Creatinine Clearance Estimated 115 mL/min (50-200); Estimated Glomerular Filt Rate 81 ml/min (>60); GFR (African American) 98 ML/MIN (>60); Glucose 112 mg/dl (74-100); Potassium 3.5 mmoL/L (3.5-5.1); Sodium 140 mmol/L (136-145); Total Protein,Serum 8.4 g/dl (6.3-8.2)
[2020-09-26 01:49] LABS: Appearance,Urine CLEAR (Clear); Bilirubin,Urine Negative (Negative); Blood, Urine Negative (Negative); Color,Urine YELLOW (Yellow); Glucose,Urine (UA) Negative (Negative); Ketones,Urine Negative (Negative); Leukocyte Esterase,Urine Negative (Negative); Nitrate,Urine Negative (Negative); Protein,Urine Negative (Negative); Urobilinogen,Urine 0.2 EU/dl (0.2)
[2020-09-26 02:02] LABS: Troponin I < 0.01 ng/ml (0.00-0.034)
[2020-09-26 02:05] VITALS: BP 116/59; PULSE 81; RESP 16; O2SAT 99
[2020-09-26 02:17] LABS: Barbiturates Screen,Urine Negative ng/ml (<200)
[2020-09-26 02:18] LABS: Benzodiazepines Screen,Urine Negative ng/ml (<200); Cannabinoid Screen,Urine Negative ng/ml (<50)
[2020-09-26 02:19] LABS: Cocaine Screen,Urine Negative ng/ml (<300)
[2020-09-26 02:20] LABS: Methadone Screen,Urine Negative ng/ml (<300); Opiate Screen,Urine Negative ng/ml (<300)
[2020-09-26 02:21] LABS: Phencyclidine Screen,Urine Negative ng/ml (<25)
[2020-09-26 02:30] VITALS: BP 114/69; PULSE 81; O2SAT 100
[2020-09-26 02:34] LABS: Bacteria,Urine Trace /lpf
[2020-09-26 02:57] LABS: Erythrocyte Sedimentation Rate 3 mm/hr (0-20)
[2020-09-26 03:26] VITALS: BP 126/80; PULSE 72; RESP 16; TEMP 36.7; O2SAT 100
[2020-09-30 06:44] LABS: Amphetamine Positive (.); Amphetamines Positive (.); Methamphetamine Positive (.)
[2020-09-30 08:35] LABS: Amphetamine (GC/MS) 1980 ng/mL (Cutoff=500); Methamphetamine (GC/MS) >3000 ng/mL (Cutoff=500)
== END 2020-09-26 03:28 | disposition home or self-care (01) ==
PROVIDERS: Emergency Provider Emergency Medicine; PCP Nurse Practitioner Family
DX: R42 Dizziness and giddiness (principal); R89.2 Abnormal level of other drugs, medicaments and biological substances in specimens from other organs, systems and tissues; R00.2 Palpitations; F41.8 Other specified anxiety disorders; I10 Essential (primary) hypertension; G43.709 Chronic migraine without aura, not intractable, without status migrainosus; F17.210 Nicotine dependence, cigarettes, uncomplicated; Z79.899 Other long term (current) drug therapy
CPT/HCPCS: 80048; 80076; 80305; 80324; 81001; 84484; 85025; 85651; 86140; 93005; 96365; 99283

== ENCOUNTER 2020-10-17 13:00 | Outpatient (RCR) | payer MEDICAID, SELFPAY ==
--- NOTE | 2020-08-09 13:00 | HMH.SLAPHASI ---
Speech & Language Evaluation Speech/Language Aphasia Evaluation Start: 08/09/20 12:31 Freq: once Status: Complete Protocol: Document 08/09/20 12:31 ULYSSES (Rec: 08/09/20 12:59 ULYSSES [id number]) Aphasia Assessment/Goals/Plan Assessment Date of Evaluation: 08/09/20 Evaluation Type Initial Certification Assessment/Problems Memory and cognitive changes. Does Patient Qualify for Service Yes Qualify/Failure Comment Significant memory and cognitive changes reported by patient. Evaluation results indicate a moderate memory/ cognitive disorder characterized by short term memory difficulties as well as difficulty with auditory comprension and recall. Plan Pt will be seen # times/week 2 for # weeks 8 Anticipate reaching STG in # weeks 4 Anticipate reaching LTG in # weeks 8 Pt/Guardian verbally ack understanding Yes of dx/prognosis/goals Pt/Guardian verbally ack understanding Yes of/consent to tx prog G -code Required No STG-Auditory Comprehension Sentence Level 80 Paragraph Level 80 STG-Reading Comprehension Reading Paragraphs & Ans Questions 80 STG-Attending/Orientation/Memory Delayed Recall 80 Attention/Concentration 80 Memory Recall 80 Sustainability Communicator Goals Increase oral motor tone to improve No intelligibility. Increase intelligibility w/use of No traditional articulation treatment. Increase verbal expression skills to No communicate w/family & friends. Education Instructions provided Patient and her partner were provided information about therapy and home exercise programs to be implemented. Pt/Caregiver Able to Recall Information Able to recall/restate Reinforcement needed Yes Speech & Language HPI History Present Illness Description of Patient Problem Kristin Salguero was referred for a cognitive evaluation due to recent significant cognitive changes and decline in short term memory skills. Pt/Caregiver Concerns Memory and independence Rehab Services Assessed Speech therapy Is this evaluation r/t stroke? No Hearing Previous Hearing Test Yes Prior Test Location Non [facility] Facility/Provider Hearing Ability Hard of Hearing Comment Patient reports hearing loss
== END 2020-10-17 13:05 | disposition home or self-care (01) ==
LOC: ST 13:00
PROVIDERS: PCP Nurse Practitioner Family; Visit Provider Specialist
DX: S06.9X9A Unspecified intracranial injury with loss of consciousness of unspecified duration, initial encounter (principal); G43.719 Chronic migraine without aura, intractable, without status migrainosus; G93.49 Other encephalopathy; R41.3 Other amnesia; R41.89 Other symptoms and signs involving cognitive functions and awareness
CPT/HCPCS: 92507; 92523; 97129; 97130

== ENCOUNTER 2020-10-17 14:00 | Outpatient (RCR) | payer MEDICAID, SELFPAY ==
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
--- NOTE | 2020-10-13 10:22 | HMH.RHREAS ---
Rehab Reassessment Rehab OP Re-assessment Start: 10/13/20 10:17 Freq: Status: Active Protocol: Document 10/13/20 10:17 BERNIE (Rec: 10/13/20 10:22 BERNIE [id number]) Electronically Signed By Satinder Shipley, PT 10/13/20 10:17 Rehab Re-assessment Subjective Subjective PT REPORTS 4/10 LBP, 0-3/10 R KNEE PAIN, AND 2-3/10 L SH PAIN ON VAS THIS AM Objective Objective Notes L-SPINE AROM FLX 0-45, EXT 0- 20, B SB 0-30 AROM L SH: FLX 0-130, ABD 0- 130, R KNEE FLX 0-110 MMT: L SH FLX 4/5, ABD 4/5, R KNEE FLX 4+/5, R KNEE EXT 4+/5 , R HIP FLX 4/5 TTP: L2-4 PARA MM 3/4, R AND L THORACIC PARA 3/4, L SH ANT JT LINE 1-2/4 Assessment Progress Assessment Progressing as Expected Assessment Notes IMPROVED ROM, STRENHTH, AND SLIGHT IMPROVEMENT IN TTP Patient goals met STG'S 12/23 LTG'S 08/26 Goals Not Met STG'S 10/23, LTG'S 03/26 Plan Plan PT TO CONT. W/SKILLED P.T. TO MAKE FURTHER IMPROVEMENTS IN ROM, STRENGTH, AND TTP TO ALLOW FOR OPTIMAL FUNCTION Frequency of Therapy 1-2X/WK Duration of therapy 3-4WKS Time and Billing Re-Eval Time 15 Re-Eval Billing Units 1 PHYSICIAN CERTIFICATION: I certify the specified therapy services for Kristin Martinezmontana Fisher are required, authorized, and reviewed every 30 days.
== END 2020-10-17 14:05 | disposition home or self-care (01) ==
LOC: PT 14:00
PROVIDERS: Visit Provider Nurse Practitioner Family
DX: M54.9 Dorsalgia, unspecified (principal); G89.29 Other chronic pain
CPT/HCPCS: 97010; 97014; 97110; 97163; 97164; G0283

== ENCOUNTER 2020-12-07 21:14 | Emergency (ER) | payer MEDICARE, MEDICAID, SELFPAY ==
[2020-12-07 21:14] VITALS: BP 113/60; PULSE 106; RESP 16; TEMP 36.4; O2SAT 99; BMI 22.6
[2020-12-07 22:31] VITALS: BP 110/62; PULSE 101; RESP 16; O2SAT 100
[2020-12-07 22:49] LABS: Basophils % 0.4 % (0.1-2.0); Eosinophils # 0.3 K/mm3 (0.0-0.4); Eosinophils % 2.5 % (0.1-12.0); Hematocrit 39.4 % (37.0-47.0); Hemoglobin 12.7 g/dL (12.2-16.2); Lymphocytes # 2.9 K/mm3 (0.7-4.5); Lymphocytes % 29.1 % (10-50); Mean Corpuscular HGB Conc 32.2 g/dL (31.8-35.4); Mean Corpuscular Hemoglobin 29.2 pg (27.0-31.2); Mean Corpuscular Volume 90.6 fl (81-99); Mean Platelet Volume 8.2 fl (7.4-10.4); Monocytes # 0.4 K/mm3 (0.1-1.0); Monocytes % 4.4 % (1.7-9.3); Neutrophils # 6.2 K/mm3 (1.8-7.8); Neutrophils % 63.6 % (37.0-80.0); Platelet Count 211 K/mm3 (142-424); Red Blood Count 4.34 M/mm3 (4.20-5.40); Red Cell Distribution Width 13.2 % (11.5-17.5); White Blood Count 9.8 K/mm3 (4.8-10.8)
[2020-12-07 22:51] LABS: Alanine Aminotransferase 37 U/L (12-78); Albumin Level 4.1 g/dl (3.5-5.0); Albumin/Globulin Ratio 1.3 (1.1-1.8); Alkaline Phosphatase 104 U/L (38-126); Anion Gap 11.6 mEq/L (5-15); Aspartate Amino Transferase 29 U/L (14-36); Bilirubin,Total 0.7 mg/dl (0.2-1.3); Blood Urea Nitrogen 11 mg/dl (7-17); Calcium 9.1 mg/dl (8.4-10.2); Carbon Dioxide 23 mmol/L (22.0-30.0); Chloride 106 mmol/L (98-107); Creatinine Clearance Estimated 111 mL/min (50-200); Estimated Glomerular Filt Rate 95 ml/min (>60); GFR (African American) 115 ML/MIN (>60); Globulin 3.1 g/dL (1.3-3.2); Glucose 139 mg/dl (74-100); Potassium 3.6 mmoL/L (3.5-5.1); Sodium 137 mmol/L (136-145); Total Protein,Serum 7.2 g/dl (6.3-8.2)
[2020-12-07 22:54] LABS: Lactic Acid 1.5 mmol/L (0.7-2.1)
[2020-12-07 22:57] LABS: C-Reactive Protein 56.3 mg/L (0-4)
--- NOTE | 2020-12-07 22:59 | [facility]H.EDSKAF ---
ED Disposition Clinical Impression: Abscess of skin or subcutaneous tissue Qualifiers: Site of cutaneous abscess: extremity Site of cutaneous abscess of extremity: upper extremity Laterality: right Qualified Code(s): L02.413 - Cutaneous abscess of right upper limb Disposition: Left Against Medical Advice Condition on Discharge: Serious - Critical Care Critical Care Time: No Attestation: On 12/07/20, the high probability of a clinically significant, sudden or life threatening deterioration of the following system(s) required my full and direct attention, intervention and personal management. The time I documented below is in addition to time spent performing reported procedures but includes the following listed in this critical care notation. Medical Decision Making - Medical Records Medical records reviewed: Yes: I reviewed the patient's medical records. - Joon Inquiry Pt receiving controlled substance: No Vital Signs: 12/07/20 21:14 Temperature 97.6 F Temperature Source Oral Pulse Rate [Left Radial] 106 H Respiratory Rate 16 Blood Pressure [Right Arm] 113/60 Blood Pressure Mean [Right Arm] 77 Blood Pressure Source [Right Arm] Automatic Cuff Blood Pressure Position [Right Arm] Sitting 02 Sat by Pulse Oximetry 99 Oxygen Delivery Method Room Air - Lab Data Lab results reviewed: Yes: I reviewed the patient's lab results. Lab Results 12/07/20 22:25: WBC 9.8, RBC 4.34, Hgb 12.7, Hct 39.4, MCV 90.6, MCH 29.2, MCHC 32.2, RDW 13.2, Plt Count 211, MPV 8.2, Neut % (Auto) 63.6, Lymph % (Auto) 29.1, [place] % (Auto) 4.4, Eos % (Auto) 2.5, Baso % (Auto) 0.4, Neut # (Auto) 6.2, Lymph # (Auto) 2.9, [place] # (Auto) 0.4, Eos # (Auto) 0.3, Baso # (Auto) 0.0, ESR 55 H 12/07/20 22:25: Sodium 137, Potassium 3.6, Chloride 106, Carbon Dioxide 23, Anion Gap 11.6, BUN 11, Creatinine 0.70, Estimated Creat Clear 111, Estimated GFR 95, Est GFR ( Amer) 115, Glucose 139 H, Calcium 9.1, Total Bilirubin 0.7, AST 29, ALT 37, Alkaline Phosphatase 104, C-Reactive Protein 56.3 H, Total Protein 7.2, Albumin 4.1, Globulin 3.1, Albumin/Globulin Ratio 1.3, Procalcitonin 0.058 12/07/20 22:25: Lactate 1.5 12/07/20 22:59: Urine Color Yellow, Urine Appearance Clear, Urine pH 6.0, Ur Specific [place] >= 1.030, Urine Protein Negative, Urine Glucose (UA) Negative, Urine Ketones Trace, Urine Blood Trace-i, Urine Nitrate Negative, Urine Bilirubin Negative, Urine Urobilinogen 2.0, Ur Leukocyte Esterase Negative, Urine RBC Occasional, Urine WBC 5-10, Ur Squamous Epith Cells 20-50, Urine Bacteria 4+ 12/07/20 22:59: Urine HCG, Qual Negative 12/07/20 22:59: Urine Opiates Screen Negative, Urine Methadone Screen Negative, Ur Barbituates Screen Negative, Ur Phencyclidine Scrn Negative, U Benzodiazepines Scrn Negative, Urine Cocaine Screen Negative, U Marijuana (THC) Screen Negative Result diagrams: 12/07/20 22:25 12/07/20 22:25 Orders (Tests/Meds): ED MEDICATIONS Generic Name Dose Route Start Last Admin Trade Name Freq PRN Reason Stop Dose Admin Sodium Chloride 1,000 mls @ 999 mls/hr 12/07/20 22:30 12/07/20 22:29 Sod Chlor 0.9% 1000ml Bag IV 12/07/20 23:30 999 mls/hr .[id number] RYAN Administration Vancomycin HCl 1,000 mg/ 250 mls @ 125 mls/hr 12/07/20 23:00 12/07/20 23:15 Sodium Chloride IV 12/21/20 22:59 125 mls/hr Q8H RYAN Administration Protocol Discontinued Medications Generic Name Dose Route Start Last Admin Trade Name Freq PRN Reason Stop Dose Admin Ketorolac Tromethamine 30 mg 12/07/20 22:19 12/07/20 22:31 Ketorolac 30mg/Ml Vial IV 12/07/20 22:20 30 mg ONCE ONE Administration ORDERS Category Date Time Status Drug Screen,Urine Stat Lab 12/07/20 22:59 Results Full Resp Panel w/COVID ([facility]) Routine Lab 12/07/20 23:00 Received Blood Culture Stat Micro 12/07/20 22:25 Received Urine Culture Stat Micro 12/07/20 22:59 Received Medical Decision Narrative: pt with possible ivdu - pt denied but has tra
[2020-12-07 23:00] VITALS: BP 109/59; PULSE 105; RESP 16; O2SAT 100
[2020-12-07 23:02] LABS: Microscopic, Urine URINE MICROSCOPIC (MICROSCOPIC)
--- NOTE | 2020-12-07 23:02 | PC.NURSE ---
spoke with jacinta crain: vancomycin dosage. he states give 1000mg iv q8hr and will reassess in the morning when pharmacy makes rounds. md notified. orders placed.
[2020-12-07 23:06] LABS: Appearance,Urine CLEAR (Clear); Bilirubin,Urine Negative (Negative); Blood, Urine TRACE-I (Negative); Color,Urine YELLOW (Yellow); Glucose,Urine (UA) Negative (Negative); Ketones,Urine TRACE (Negative); Leukocyte Esterase,Urine Negative (Negative); Nitrate,Urine Negative (Negative); Protein,Urine Negative (Negative); Specific Gravity, Urine >= 1.030 (1.005-1.030); Urine Pregnancy, HCG Qual. Negative (Negative)
[2020-12-07 23:08] LABS: Adenovirus,PCR Not Detected (NotDetected); Bordetella Pertussis Not Detected (NotDetected); Chlamydophila Pneumoniae, PCR Not Detected (NotDetected); Coronavirus 19, PCR Not Detected (NotDetected); Coronavirus 229E Not Detected (NotDetected); Coronavirus NL63 Not Detected (NotDetected); Coronavirus OC43 Not Detected (NotDetected); Coronovirus HKU1,PCR Not Detected (NotDetected); Human Metapneumovirus Not Detected (NotDetected); Influenza A, PCR Not Detected (NotDetected); Influenza AH1, 2009 Not Detected (NotDetected); Influenza AH1, PCR Not Detected (NotDetected); Influenza AH3,PCR Not Detected (NotDetected); Influenza B, PCR Not Detected (NotDetected); Mycoplasma Pneumoniae, PCR Not Detected (NotDetected); Parainfluenza 1, PCR Not Detected (NotDetected); Parainfluenza 2, PCR Not Detected (NotDetected); Parainfluenza 3, PCR Not Detected (NotDetected); Parainfluenza 4, PCR Not Detected (NotDetected); Respiratory Syncytial Virus Not Detected (NotDetected); Rhinovirus/Enterovirus Not Detected (NotDetected)
[2020-12-07 23:10] LABS: Procalcitonin 0.058 ng/mL (0.0-2.0)
[2020-12-07 23:17] LABS: Benzodiazepines Screen,Urine Negative ng/ml (<200)
[2020-12-07 23:18] LABS: Barbiturates Screen,Urine Negative ng/ml (<200)
[2020-12-07 23:19] LABS: Cannabinoid Screen,Urine Negative ng/ml (<50); Cocaine Screen,Urine Negative ng/ml (<300)
[2020-12-07 23:20] LABS: Bacteria,Urine 4+ /lpf; Methadone Screen,Urine Negative ng/ml (<300); RBC,Urine Occasional #/hpf (0-3); Squamous Epithelial Cell,Urine 20-50 #/hpf (0-5)
[2020-12-07 23:21] LABS: Opiate Screen,Urine Negative ng/ml (<300); Phencyclidine Screen,Urine Negative ng/ml (<25)
[2020-12-07 23:25] LABS: Erythrocyte Sedimentation Rate 55 mm/hr (0-20)
--- NOTE | 2020-12-07 23:36 | PC.NURSE ---
Pt requesting to sign out AMA. Pt informed of risks of leaving hospital. Pt stated she did not want to wait for IV vanc to finish infusing as well.
[2020-12-07 23:42] VITALS: BP 100/60; PULSE 102; RESP 16; TEMP 36.6; O2SAT 100
[2020-12-16 06:08] LABS: Amphetamine Positive (.); Amphetamines Positive (.); Methamphetamine Positive (.)
[2020-12-17 06:33] LABS: Amphetamine (GC/MS) 10670 ng/mL (Cutoff=500); Methamphetamine (GC/MS) >3000 ng/mL (Cutoff=500)
== END 2020-12-07 23:43 | disposition left against medical advice (07) ==
LOC: ER 22:20 → 2ND 23:12 → ER 23:37
PROVIDERS: Emergency Provider Emergency Medicine; PCP Internal Medicine Adolescent Medicine
DX: L02.413 Cutaneous abscess of right upper limb (principal); Z20.822 Contact with and (suspected) exposure to COVID-19; I10 Essential (primary) hypertension; F17.210 Nicotine dependence, cigarettes, uncomplicated; F41.8 Other specified anxiety disorders; Z79.899 Other long term (current) drug therapy
CPT/HCPCS: 80053; 80305; 80324; 81001; 81025; 83605; 84145; 85025; 85651; 86140; 87040; 87086; 87581; 87633; 87798; 96365; 96367; 96375; 99283; J3370